=== PATIENT | female | born 1985 | race Two or more races ===

== ENCOUNTER 2018-06-18 18:57 | Emergency (ER) | payer OTHER ==
[2018-06-18 19:08] VITALS: BP 133/77; PULSE 89; TEMP 98.4; BMI 29.7
[2018-06-18] MEDS ORDERED: methylPREDNISolone NA SUCC 125 MG/2 ML VIAL IVPB ONE (19:37)
[2018-06-18] MEDS ORDERED: CLINDAMYCIN IVPB 300 MG in DEXTROSE 5%-WATER - 48 ML IVPB ONE (19:38)
--- NOTE | 2018-06-18 19:39 | PDOC ---
History of Present Illness - General Chief Complaint: Sore Throat Stated Complaint: SORE THROAT Time Seen by Provider: 06/18/18 19:09 - History of Present Illness Initial Comments: 06/18/18 19:35 33-year-old female without comorbidities presents for evaluation of sore throat 5 days Past History - Past Medical History Allergies/Adverse Reactions: Allergies Allergy/AdvReac Type Severity Reaction Status Date / Time No Known Allergies Allergy Verified 06/18/18 19:08 Home Medications: Ambulatory Orders Ibuprofen 600 mg PO ASDIR 06/18/18 COPD: No GI Disorders: No - Surgical History Appendectomy: No - Immunization History Immunization Up to Date: No - Suicide/Smoking/Psychosocial Hx Smoking History: Never smoked Have you smoked in the past 12 months: No Information on smoking cessation initiated: No Hx Alcohol Use: No Drug/Substance Use Hx: No Review of Systems - Review of Systems Constitutional: Yes: Fever HEENTM: Yes: Throat Pain, Difficulty Swallowing *Physical Exam - Vital Signs Last Vital Signs Temp Pulse Resp BP Pulse Ox 98.4 F 89 18 133/77 100 06/18/18 19:06 06/18/18 19:06 06/18/18 19:06 06/18/18 19:06 06/18/18 19:06 - Physical Exam Comments: 06/18/18 19:35 HEAD: NC/AT EYES: Conjuntiva clear Ears: Canals and TM's normal NOSE: No d/c THROAT: Moist mucous membrances, oral pharynx is erythemic no exudate uvula is deviated to the right NECK: Supple without adenopathy CARDIAC: S1 S2 LUNGS: CTA Full and Equal breath sounds ABDOMEN: Soft NT ND MS: Full ROM in all joints without edema NEUROLOGIC: No gross sensory or motor deficits, NVID SKIN: Normal color and temperature no lesions or rashes Medical Decision Making - Medical Decision Making 06/18/18 19:36 I suspect a peritonsillar abscess I will order lab work IV fluid's steroids urine and a CAT scan 06/18/18 19:37 transfer to main ER *DC/Admit/Observation/Transfer Diagnosis at time of Disposition: Sore throat - Discharge Dispostion Disposition: HOME Condition at time of disposition: Stable Decision to Admit order: No - Referrals - Patient Instructions - Post Discharge Activity
[2018-06-18 20:01] LABS: BASO % 0.4 % (0-2.0); EOS % 0.5 % (0-4.5); HEMATOCRIT 40.9 % (32.4-45.2); HEMOGLOBIN 13.7 GM/dL (10.7-15.3); LYMPH % 6.9 % (8-40); MCH 28.5 pg (25.7-33.7); MCHC 33.6 g/dl (32.0-36.0); MEAN CELL VOLUME 84.8 fl (80-96); MONO % 10.6 % (3.8-10.2); NEUT % 81.6 % (42.8-82.8); PLATELET COUNT 321 K/MM3 (134-434); RBC 4.82 M/mm3 (3.60-5.2); RDW 13.6 % (11.6-15.6); WHITE BLOOD COUNT 18.5 K/mm3 (4.0-10.0)
[2018-06-18 20:26] LABS: ALBUMIN 3.8 g/dl (3.4-5.0); ALK PHOS 99 U/L (45-117); ANION GAP 7 MMOL/L (8-16); BILIRUBIN,TOTAL 0.5 mg/dL (0.2-1); BLOOD UREA NITROGEN 8 mg/dL (7-18); CALCIUM 8.7 mg/dL (8.5-10.1); CHLORIDE 105 mmol/L (98-107); CO2 27 mmol/L (21-32); CREATININE 0.6 mg/dL (0.55-1.3); GLUCOSE,RANDOM 103 mg/dL (74-106); POTASSIUM 4.1 mmol/L (3.5-5.1); SGOT/AST 14 U/L (15-37); SGPT/ALT 29 U/L (13-61); SODIUM 139 mmol/L (136-145); TOT PROT 7.8 g/dl (6.4-8.2)
[2018-06-18] MEDS ORDERED: methylPREDNISolone NA SUCC 125 MG/2 ML VIAL ONE (20:32)
[2018-06-18] MEDS ORDERED: morphine CARPU-JECT 2 MG/1 ML DISP.SYRIN IVPUSH ONE (20:41)
--- NOTE | 2018-06-18 20:47 | PDOC ---
History of Present Illness - General Chief Complaint: Sore Throat Stated Complaint: SORE THROAT Time Seen by Provider: 06/18/18 19:09 - History of Present Illness Initial Comments: 33 year old female with no PMH presenting with 5 days of worsening odynophagia and left sided trismus. She also states that she has been subjectively warm but hasn't tried to measure her temperature at home. It started off as a mild sore throat but has worsened and she now has pain all along her left jaw down her neck, worse with opening of her mouth and chewing food. She can still tolerate liquids without too much issue. Denues any nausea, vomiting, diarrhea, chest pain, stridor, SOB, or other symptoms. 06/18/18 20:39 Past History - Past Medical History Allergies/Adverse Reactions: Allergies Allergy/AdvReac Type Severity Reaction Status Date / Time No Known Allergies Allergy Verified 06/18/18 19:08 Home Medications: Ambulatory Orders Clindamycin [Cleocin -] 300 mg PO TID 10 Days #30 capsule 06/18/18 Ibuprofen 600 mg PO ASDIR 06/18/18 Prednisone [Prednisone 50 MG TABLETS] 50 mg PO DAILY 4 Days #4 tablet 06/18/18 COPD: No GI Disorders: No - Surgical History Appendectomy: No - Immunization History Immunization Up to Date: No - Suicide/Smoking/Psychosocial Hx Smoking History: Never smoked Have you smoked in the past 12 months: No Information on smoking cessation initiated: No Hx Alcohol Use: No Drug/Substance Use Hx: No Review of Systems - Review of Systems Constitutional: Yes: Fever, Loss of Appetite. No: Chills, Diaphoresis, Weakness HEENTM: No: Eye Pain, Blurred Vision, Tearing Respiratory: No: Cough, Shortness of Breath, SOB with Exertion Cardiac (ROS): No: Chest Pain, Edema, Irregular Heart Rate ABD/GI: Yes: Difficulty Swallowing, Poor Appetite. No: Diarrhea, Nausea, Poor Fluid Intake, Vomiting : No: Burning, Dysuria, Discharge Musculoskeletal: No: Back Pain, Joint Pain, Muscle Pain, Muscle Weakness Integumentary: No: Lesions, Lumps, Rash Neurological: No: Headache, Numbness, Paresthesia, Weakness Hematologic/Lymphatic: No: Blood Clots, Easy Bleeding, Easy Bruising *Physical Exam - Vital Signs Last Vital Signs Temp Pulse Resp BP Pulse Ox 98.4 F 89 18 133/77 100 06/18/18 19:06 06/18/18 19:06 06/18/18 19:06 06/18/18 19:06 06/18/18 19:06 - Physical Exam General Appearance: Yes: Nourished, Appropriately Dressed. No: Apparent Distress HEENT: positive: EOMI, MELL. negative: Normal ENT Inspection (Left sided peritonsillar swelling with uvula deviation to the right. Mild trismus on the left but able to tolerate opening her mouth.), Normal Voice Neck: positive: Trachea midline, Normal Thyroid, Supple, Lymphadenopathy (L). negative: Tender, Rigid Respiratory/Chest: positive: Lungs Clear, Normal Breath Sounds. negative: Chest Tender, Respiratory Distress, Accessory Muscle Use Cardiovascular: positive: Regular Rhythm, Regular Rate Gastrointestinal/Abdominal: positive: Normal Bowel Sounds, Flat, Soft. negative : Tender Lymphatic: positive: Adenopathy. negative: Tenderness Musculoskeletal: positive: Normal Inspection. negative: Decreased Range of Motion Extremity: positive: Normal Capillary Refill, Normal Inspection, Normal Range of Motion. negative: Tender Integumentary: positive: Normal Color, Dry, Warm Neurologic: positive: Fully Oriented, Alert, Normal Mood/Affect, Normal Response , Motor Strength 5/ ED Treatment Course - LABORATORY CBC & Chemistry Diagram: 06/18/18 19:45 06/18/18 19:45 - ADDITIONAL ORDERS Additional order review: Laboratory Results 06/18/18 06/18/18 19:45 19:45 Sodium 139 Potassium 4.1 Chloride 105 Carbon Dioxide 27 Anion Gap 7 L BUN 8 Creatinine 0.6 Creat Clearance w eGFR 113.77 Random Glucose 103 Calcium 8.7 Total Bilirubin 0.5 AST 14 L ALT 29 Alkaline Phosphatase 99 Total Protein 7.8 Albumin 3.8 Urine HCG, Qual Negative 06/18/18 19:45 RBC 4.82 MCV 84.8 MCHC 33.6 RDW 13.6 MPV 8.0 Neutrophils % 81.6 Lymphocytes % 6.9 L Monocytes % 10.6 H Eosinophils % 0.5 Basophils % 0.4 Medical Decision Making - Medical Decision Making 33 year old female with 5 days of throat pain and mild left sided trismus. WBC 18.5, patient with VSS in our ED. HCG negative. HOME CARE AIDE drained after 2 of IV morphine, 125 solumedrol, and cetacaine spray. HOME CARE AIDE drainage was successful with blood and purulent material drained both via syringe suction and moderate amount afterwards. Patient observed for one hour after procedure and was well. 06/18/18 22:09 Patient much better. Will DC with steroids, clindamycin, and ENT follow up. 06/18/18 23:07 *DC/Admit/Observation/Transfer Diagnosis at time of Disposition: Sore throat, Peritonsillar abscess - Discharge Dispostion Disposition: HOME Condition at time of disposition: Stable Decision to Admit order: No - Prescriptions Prescriptions: Clindamycin [Cleocin -] 300 mg PO TID 10 Days #30 capsule Prednisone [Prednisone 50 MG TABLETS] 50 mg PO DAILY 4 Days #4 tablet - Referrals Referrals: Lambert Stuart MD [Staff Physician] - - Patient Instructions Printed Discharge Instructions: DI for Peritonsillar Abscess -- Adult Additional Instructions: Use Motrin y Tylenol para el dolor cada 4-6 horas. Por favor, use los antibiticos linh veces al da joselin 10 levy. Por favor, use los esteroides diariamente. Por favor janet axel prince con el mdico ENT para deloris lunes. Regrese a la ysair de emergencias si tiene sntomas nuevos o que empeoran. Print Language: GERMAN - Post Discharge Activity
--- NOTE | 2018-06-18 20:57 | PDOC ---
Attending Attestation - HPI HPI: This patient is a 33 year old female with no significant PMHx, who presents with 5 days of sore throat. Today she reports painful swallowing and left sided jaw pain. She also reports subjective fevers. She denies any nausea, vomiting, diarrhea, chest pain, stridor, SOB, or other symptoms. - Physicial Exam PE: GENERAL: Awake, alert, and fully oriented. HEAD: No signs of trauma EYES: PERRLA, EOMI, sclera anicteric, conjunctiva clear ENT: Auricles normal inspection, hearing grossly normal, nares patent, Mild trismus. Bulging superior tonsillar pole with deviation of the uvula. NEUROLOGICAL: Cranial nerves II through XII grossly intact. SKIN: Warm, Dry, normal turgor, no rashes or lesions noted. <Marjorie Mendoza - Last Filed: 06/18/18 21:14> - Resident Resident Name: Emelyn Saab - Medical Decision Making 06/18/18 22:58 Pt presents to the ED complaining of sore throat with mild trismus and odontophasia that started three days ago but became acutely worse today. + [employer]ESP[employer] SHOES on exam. Aspiration performed with approximately 1 cc pus obtained. Will treat with clindamycin and steroids and reassess. likey discharge home with rx for PO antibiotics and steroids. <Chayo Hong - Last Filed: 06/18/18 23:03> Attestations - Attestations 06/18/18 21:14 Documentation prepared by Marjorie Mendoza, acting as medical attendant for Chayo Hong MD. <Marjorie Mendoza - Last Filed: 06/18/18 21:14>
[2018-06-18] MEDS ORDERED: MORPHINE SULFATE 2 MG/ML VIAL ONE (20:59)
== END 2018-06-18 23:49 | disposition home or self-care (01) ==
LOC: JER 18:57 → JERFT 18:57 → JER 23:49
PROC: 3E03329 Introduction of Other Anti-infective into Peripheral Vein, Percutaneous Approach (ICD-10-PCS; principal; 2018-06-18)
PROC: 3E033NZ Introduction of Analgesics, Hypnotics, Sedatives into Peripheral Vein, Percutaneous Approach (ICD-10-PCS; 2018-06-18)
PROC: 3E0333Z Introduction of Anti-inflammatory into Peripheral Vein, Percutaneous Approach (ICD-10-PCS; 2018-06-18)
PROC: 0C9P0ZZ Drainage of Tonsils, Open Approach (ICD-10-PCS; 2018-06-18)
DX: J36 Peritonsillar abscess (principal)
CPT/HCPCS: 36415; 42700; 80053; 84703; 85025; 87880; 96365; 96375; 99282-25